=== PATIENT | female | born 2000 | race Caucasian/White ===

== ENCOUNTER 2021-06-11 10:03 | Emergency (ER) | payer OTHER ==
[~2021-06-11] VITALS: Ht 160 cm; Wt 97.5 kg
[2021-06-11 11:13] LABS: URINE BILIRUBIN NEGATIVE (Negative); URINE BLOOD NEGATIVE (Negative); URINE CLARITY CLEAR; URINE COLOR YELLOW; URINE GLUCOSE-RANDOM* NEGATIVE (Negative); URINE KETONES NEGATIVE (Negative); URINE LEUKOCYTES-REFLEX TRACE (Negative); URINE NITRITE-REFLEX NEGATIVE (Negative); URINE PROTEIN (DIPSTICK) NEGATIVE (Negative); URINE SPECIFIC GRAVITY >= 1.030 (1.005-1.035); URINE UROBILINOGEN 0.2 E.U./dl (0.2-1.0)
[2021-06-11 11:33] VITALS: BP 102/60
[2021-06-11] MEDS ORDERED: METRONIDAZOLE500 M4 PO (13:43)
--- NOTE | 2021-06-12 07:39 | EKG ---
[address] [address] ELECTROCARDIOGRAM REPORT Name: LEEANNA JIM Room #: [facility] Arleen#: [id number] Admission: 06/11/21 Attend Phys: Discharge: 06/11/21 Date of : [birth year] Report #: [id number] [facility] ED Test Date: 2021-06-11 Test Time: 10:12:03 Pat Name: LEEANNA JIM Department: Room: Gender: F Pre Parole Counseling Aide: ARSEN : 2000 Requested By: Mio Boyd Order Number: [id number] MD: Pilo Shelley Measurements Intervals [place] Rate: 81 P: 36 ND: 130 QRS: 52 QRSD: 85 T: -9 QT: 366 QTc: 425 Interpretive Statements Sinus rhythm Borderline repolarization abnormality No previous ECG available for comparison Electronically Signed On 06-12-2021 7:39:04 [employer] by Pilo Shelley [email or web address] <ELECTRONICALLY SIGNED> By: Pilo Shelley MD, [facility] 06/12/21 0739 1012 1012 Pilo Shelley MD, FACC /EPI
== END 2021-06-11 13:51 | disposition home or self-care (01) ==
LOC: ER 10:03
PROVIDERS: Student in an Organized Health Care Education/Training Program
DX: N76.0 Acute vaginitis (principal); B96.89 Other specified bacterial agents as the cause of diseases classified elsewhere; R30.0 Dysuria; R42 Dizziness and giddiness